=== PATIENT | male | born 2000 | race African-American/Black ===

== ENCOUNTER → 2023-06-08 | Outpatient (CLI) | payer OTHER | LOC: M CARPUL 10:51 | PROVIDERS: ATTEND Physician Assistant | DX: R06.02 Shortness of breath (principal); R05.9 Cough, unspecified; R06.2 Wheezing ==

== ENCOUNTER → 2023-07-11 | Outpatient (CLI) | payer OTHER ==
[~2023-07-11] MED LIST: METHACHOLINE KIT (6 VIAL.NEB PREMIX) INH ONE
== END ==
LOC: M CARPUL 09:35
PROVIDERS: ATTEND Physician Assistant
DX: R06.02 Shortness of breath (principal); R05.9 Cough, unspecified; R06.2 Wheezing

== ENCOUNTER 2024-12-18 21:25 | Emergency (ER) | payer OTHER ==
[~2024-12-18] VITALS: Ht 177.8 cm; Wt 80.4 kg
[2024-12-19 09:43] LABS: BASO # 0.1 10^3/uL (0.0-0.2); BASO % 0.7 % (0.0-1.0); EOS # 1.3 10^3/uL (0.0-0.5); EOS % 14.4 % (0.0-3.0); LYMPH # 3.9 10^3/uL (1.5-5.0); LYMPH % 43.8 % (24.0-44.0); MONO # 0.5 10^3/uL (0.0-0.8); MONO % 6.1 % (2.0-8.0); NEUTROPHILS # 3.1 10^3/uL (1.5-8.5); NEUTROPHILS % 34.9 % (36.0-66.0); PLATELET COUNT, AUTOMATED 227 10^3/uL (150-450)
[2024-12-19 10:07] LABS: CALCIUM LEVEL 9.6 MG/DL (8.5-10.1); CARBON DIOXIDE LEVEL 25 MMOL/L (20-31); CHLORIDE LEVEL 105 MMOL/L (98-107); CK-MB VALUE MASS < 1.0 NG/ML (<3.6); CREATININE FOR GFR 1.05 MG/DL (0.70-1.30); GLOMERULAR FILTRATION RATE > 90.0 (>60); POTASSIUM SERUM 4.3 MMOL/L (3.5-5.1); SODIUM LEVEL 142 MMOL/L (136-145)
[2024-12-19 10:23] LABS: CPK CREATINE PHOSPHOKINASE 216 U/L (46-171)
[2024-12-19 11:39] LABS: CK-MB VALUE MASS < 1.0 NG/ML (<3.6)
[2024-12-19 11:40] LABS: CPK CREATINE PHOSPHOKINASE 194 U/L (46-171)
[2024-12-19 12:05] VITALS: BP 143/73; TEMP 98.2; O2SAT 100
[2024-12-19] MEDS ORDERED: HOLTER MONITOR XX (12:08)
== END 2024-12-19 12:29 | disposition home or self-care (01) ==
LOC: M ED 21:25
DX: S29.011A Strain of muscle and tendon of front wall of thorax, initial encounter (principal); X50.0XXA Overexertion from strenuous movement or load, initial encounter; R00.2 Palpitations; I10 Essential (primary) hypertension; R00.1 Bradycardia, unspecified; Y92.9 Unspecified place or not applicable; Y93.9 Activity, unspecified; Y99.9 Unspecified external cause status

== ENCOUNTER → 2024-12-20 | Outpatient (CLI) | payer OTHER ==
[~2024-12-20] MED LIST changes: +HOLTER MONITOR XX; -METHACHOLINE KIT (6 VIAL.NEB PREMIX) INH ONE
== END ==
LOC: M EKG 08:18
DX: Z53.9 Procedure and treatment not carried out, unspecified reason (principal)